=== PATIENT | female | born 1945 | race Caucasian/White ===

== ENCOUNTER → 2016-12-04 | Outpatient (CLI) | payer MEDICARE ==
[2016-12-04 11:52] LABS: ALT 32 U/L (9-52); AST 19 U/L (14-36); Alkaline Phosphatase 100 U/L (38-126); Anion Gap 10 mmol/L; Blood Urea Nitrogen 13 mg/dL (7-17); Calcium 9.4 mg/dL (8.4-10.2); Carbon Dioxide 26 mmol/L (22-30); Chloride 107 mmol/L (98-107); Cholesterol 179 mg/dL (<200); Glucose 135 mg/dL (74-99); HDL Cholesterol 41 mg/dL (40-60); Non-African American GFR(MDRD) >60 (>60 ml/min/1.73 sqM); Potassium 4.3 mmol/L (3.5-5.1); Sodium 143 mmol/L (137-145); Total Bilirubin 0.3 mg/dL (0.2-1.3); Total Protein 6.6 g/dL (6.3-8.2); Triglycerides 155 mg/dL (<150)
[2016-12-04 12:40] LABS: Vitamin B12 522 pg/mL
[2016-12-04 13:23] LABS: Hemoglobin A1C 7.7 % (4.2-6.1)
== END | disposition home or self-care (01) ==
LOC: LABWHC1 10:40
PROVIDERS: ATTEND Internal Medicine Endocrinology, Diabetes & Metabolism
DX: E10.65 Type 1 diabetes mellitus with hyperglycemia (principal)
CPT/HCPCS: 36415; 80053; 80061; 82043; 82607; 83036; 84443

== ENCOUNTER → 2017-03-11 | Outpatient (CLI) | payer MEDICARE ==
[2017-03-11 09:24] LABS: ALT 26 U/L (9-52); AST 18 U/L (14-36); Alkaline Phosphatase 80 U/L (38-126); Anion Gap 8 mmol/L; Blood Urea Nitrogen 11 mg/dL (7-17); Calcium 9.1 mg/dL (8.4-10.2); Carbon Dioxide 31 mmol/L (22-30); Chloride 105 mmol/L (98-107); Cholesterol 177 mg/dL (<200); Glucose 114 mg/dL (74-99); HDL Cholesterol 49 mg/dL (40-60); Non-African American GFR(MDRD) >60 (>60 ml/min/1.73 sqM); Potassium 4.1 mmol/L (3.5-5.1); Sodium 144 mmol/L (137-145); Total Bilirubin 0.8 mg/dL (0.2-1.3); Total Protein 7.2 g/dL (6.3-8.2); Triglycerides 92 mg/dL (<150)
[2017-03-11 13:10] LABS: Hemoglobin A1C 7.3 % (4.2-6.1)
== END ==
LOC: LABWHC1 07:42
PROVIDERS: ATTEND Internal Medicine Endocrinology, Diabetes & Metabolism
DX: E10.42 Type 1 diabetes mellitus with diabetic polyneuropathy (principal); E78.2 Mixed hyperlipidemia
CPT/HCPCS: 36415; 80053; 80061; 83036

== ENCOUNTER 2017-07-23 20:17 | Inpatient (IN) | payer MEDICARE ==
[2017-07-23] MEDS ORDERED: SODIUM CHLORIDE 0.9% 1,000 ML IV STA (21:18)
--- NOTE | 2017-07-23 21:22 | ED ---
General Adult HPI - General Chief complaint: Syncope Stated complaint: Syncope Time Seen by Provider: 07/23/17 21:06 Source: patient, family, EMS, RN notes reviewed Mode of arrival: EMS Limitations: no limitations - History of Present Illness Initial comments: Patient is a pleasant 71-year-old female presenting to the emergency department following syncopal episode. Episode occurred just prior to arrival. After eating dinner patient failed when she had to go the bathroom. Patient did pass out at some point. Patient does not recall the episode well. Patient believes she May of struck her head. No other significant injury. Patient was unresponsive for around a minute or so. No history of similar symptoms previously. Patient was sweaty and did vomit once. Patient did have one or 2 bowel movements since incident. No abdominal pain. No chest pain or dyspnea. No neck or back pain. No confusion. No weakness. - Related Data Home Medications Medication Instructions Recorded Confirmed Aspirin EC [Ecotrin Low Dose] 81 mg PO DAILY 07/18/16 07/23/17 Gabapentin [Neurontin] 300 mg PO TID 07/23/17 07/23/17 Insulin Aspart (For Pump) [NovoLOG 0.01 unit SQ-PUMP CONTINUOUS 07/23/17 (For Pump)] Allergies Allergy/AdvReac Type Severity Reaction Status Date / Time Penicillins Allergy Rash/Hives Verified 07/23/17 20:46 Rkdynrl-Etj-Dla Reductase Allergy Rash/Hives Verified 07/23/17 20:46 Inhibitor Review of Systems ROS Statement: Those systems with pertinent positive or pertinent negative responses have been documented in the HPI. ROS Other: All systems not noted in ROS Statement are negative. Constitutional: Denies: fever Eyes: Denies: eye pain ENT: Denies: ear pain Respiratory: Denies: cough, dyspnea Cardiovascular: Denies: chest pain Endocrine: Reports: fatigue Gastrointestinal: Reports: vomiting. Denies: abdominal pain, constipation Genitourinary: Denies: dysuria Musculoskeletal: Denies: back pain Skin: Denies: rash Neurological: Denies: weakness, confusion Past Medical History Past Medical History: Diabetes Mellitus, Hyperlipidemia History of Any Multi-Drug Resistant Organisms: None Reported Past Surgical History: Appendectomy, Cholecystectomy, Hysterectomy, Tonsillectomy Past Anesthesia/Blood Transfusion Reactions: No Reported Reaction Past Psychological History: No Psychological Hx Reported Smoking Status: Current every day smoker Past Alcohol Use History: None Reported, Occasional Past Drug Use History: None Reported - Past Family History Mother Family Medical History: Unable to Obtain Father Family Medical History: COPD General Exam Limitations: no limitations General appearance: alert, in no apparent distress Head exam: Present: atraumatic Eye exam: Present: normal appearance, PERRL, EOMI. Absent: nystagmus ENT exam: Present: normal oropharynx Neck exam: Present: normal inspection Respiratory exam: Present: normal lung sounds bilaterally. Absent: chest wall tenderness Cardiovascular Exam: Present: regular rate, normal rhythm Expanded Peripheral pulses: 2+: Radial (R), Radial (L), Dorsalis Pedis (R), Dorsalis Pedis (L) GI/Abdominal exam: Present: soft. Absent: tenderness, pulsatile mass Extremities exam: Present: normal inspection. Absent: pedal edema, calf tenderness Back exam: Present: normal inspection Neurological exam: Present: alert, oriented X3, CN II-XII intact. Absent: motor sensory deficit Expanded Patient oriented to: Present: person, place, time Speech: Present: fluid speech Cranial nerves: EOM's Intact: Normal, Facial Sensation: Normal Sensory exam: Upper Extremity Light Touch: Normal, Lower Extremity Light Touch: Normal Motor strength exam: RUE: 5, LUE: 5, RLE: 5, LLE: 5 Eye Response: (4) open spontaneously Motor Response: (6) obeys commands Verbal Response: (5) oriented Psychiatric exam: Present: normal affect, normal mood Skin exam: Present: normal color Course Vital Signs 07/23/17 07/23/17 07/23/17 20:28 20:58 21:33 Temperature 97.6 F Pulse Rate 77 76 73 Respiratory 18 18 18 Rate Blood Pressure 100/55 102/55 112/56 O2 Sat by Pulse 87 L 99 100 Oximetry 07/23/17 07/23/17 07/23/17 22:13 22:30 23:23 Temperature Pulse Rate 72 75 Respiratory 18 18 Rate Blood Pressure 116/73 104/64 O2 Sat by Pulse 100 97 98 Oximetry EKG Findings - EKG Comments: EKG Findings:: Normal sinus rhythm 74. NH 176. QRS 88. QT 432. QTC 479. Normal axis. Normal QRS. Normal ST-T. Medical Decision Making - Medical Decision Making Patient reexamined and resting comfortably in bed. Patient is more alert and feels much better. Patient and family updated on results and plan. Case was discussed with practitioner Lucinda reyna, who will admit for Dr. Viera, covering for Dr. Kincaid. - Lab Data Result diagrams: 07/23/17 21:30 07/23/17 21:30 Lab Results 07/23/17 07/23/17 07/23/17 Range/Units 21:30 21:30 21:30 WBC 9.9 (3.8-10.6) k/uL RBC 4.52 (3.80-5.40) m/uL Hgb 13.5 (11.4-16.0) gm/dL Hct 41.5 (34.0-46.0) % MCV 91.7 (80.0-100.0) fL MCH 30.0 (25.0-35.0) pg MCHC 32.7 (31.0-37.0) g/dL RDW 14.2 (11.5-15.5) % Plt Count 192 (150-450) k/uL Neutrophils % 72 % Lymphocytes % 18 % Monocytes % 5 % Eosinophils % 3 % Basophils % 1 % Neutrophils # 7.2 (1.3-7.7) k/uL Lymphocytes # 1.8 (1.0-4.8) k/uL Monocytes # 0.5 (0-1.0) k/uL Eosinophils # 0.3 (0-0.7) k/uL Basophils # 0.1 (0-0.2) k/uL PT (9.0-12.0) sec INR (<1.2) APTT (22.0-30.0) sec D-Dimer (<0.60) mg/L FEU Sodium 141 (137-145) mmol/L Potassium 4.2 (3.5-5.1) mmol/L Chloride 107 (98-107) mmol/L Carbon Dioxide 23 (22-30) mmol/L Anion Gap 11 mmol/L BUN 18 H (7-17) mg/dL Creatinine 0.90 (0.52-1.04) mg/dL Est GFR (MDRD) Af Amer >60 (>60 ml/min/1.73 sqM) Est GFR (MDRD) Non-Af >60 (>60 ml/min/1.73 sqM) Glucose 57 L (74-99) mg/dL POC Glucose (mg/dL) (75-99) mg/dL POC Glu Network Associate ID Calcium 9.2 (8.4-10.2) mg/dL Total Bilirubin 0.5 (0.2-1.3) mg/dL AST 30 (14-36) U/L ALT 33 (9-52) U/L Alkaline Phosphatase 85 (38-126) U/L Total Creatine Kinase 174 H (30-135) U/L CK-MB (CK-2) 3.8 H* (0.0-2.4) ng/mL CK-MB (CK-2) Rel Index 2.2 Troponin I <0.012 (0.000-0.034) ng/mL Total Protein 7.4 (6.3-8.2) g/dL Albumin 4.3 (3.5-5.0) g/dL Urine Color Urine Appearance (Clear) Urine pH (5.0-8.0) Ur Specific [place] (1.001-1.035) Urine Protein (Negative) Urine Glucose (UA) (Negative) Urine Ketones (Negative) Urine Blood (Negative) Urine Nitrite (Negative) Urine Bilirubin (Negative) Urine Urobilinogen (<2.0) mg/dL Ur Leukocyte Esterase (Negative) Urine RBC (0-5) /hpf Urine WBC (0-5) /hpf Ur Squamous Epith Cells (0-4) /hpf Urine Bacteria (None) /hpf Granular Casts (0) /lpf Urine Mucus (None) /hpf 07/23/17 07/23/17 07/23/17 Range/Units 21:30 22:06 22:37 WBC (3.8-10.6) k/uL RBC (3.80-5.40) m/uL Hgb (11.4-16.0) gm/dL Hct (34.0-46.0) % MCV (80.0-100.0) fL MCH (25.0-35.0) pg MCHC (31.0-37.0) g/dL RDW (11.5-15.5) % Plt Count (150-450) k/uL Neutrophils % % Lymphocytes % % Monocytes % % Eosinophils % % Basophils % % Neutrophils # (1.3-7.7) k/uL Lymphocytes # (1.0-4.8) k/uL Monocytes # (0-1.0) k/uL Eosinophils # (0-0.7) k/uL Basophils # (0-0.2) k/uL PT 10.1 (9.0-12.0) sec INR 1.0 (<1.2) APTT 22.1 (22.0-30.0) sec D-Dimer 0.68 H (<0.60) mg/L FEU Sodium (137-145) mmol/L Potassium (3.5-5.1) mmol/L Chloride (98-107) mmol/L Carbon Dioxide (22-30) mmol/L Anion Gap mmol/L BUN (7-17) mg/dL Creatinine (0.52-1.04) mg/dL Est GFR (MDRD) Af Amer (>60 ml/min/1.73 sqM) Est GFR (MDRD) Non-Af (>60 ml/min/1.73 sqM) Glucose (74-99) mg/dL POC Glucose (mg/dL) 66 L 93 (75-99) mg/dL POC Glu Network Associate ID Colin, Luna Shaw, Luna Calcium (8.4-10.2) mg/dL Total Bilirubin (0.2-1.3) mg/dL AST (14-36) U/L ALT (9-52) U/L Alkaline Phosphatase (38-126) U/L Total Creatine Kinase (30-135) U/L CK-MB (CK-2) (0.0-2.4) ng/mL CK-MB (CK-2) Rel Index Troponin I (0.000-0.034) ng/mL Total Protein (6.3-8.2) g/dL Albumin (3.5-5.0) g/dL Urine Color Urine Appearance (Clear) Urine pH (5.0-8.0) Ur Specific [place] (1.001-1.035) Urine Protein (Negative) Urine Glucose (UA) (Negative) Urine Ketones (Negative) Urine Blood (Negative) Urine Nitrite (Negative) Urine Bilirubin (Negative) Urine Urobilinogen (<2.0) mg/dL Ur Leukocyte Esterase (Negative) Urine RBC (0-5) /hpf Urine WBC (0-5) /hpf Ur Squamous Epith Cells (0-4) /hpf Urine Bacteria (None) /hpf Granular Casts (0) /lpf Urine Mucus (None) /hpf 07/23/17 07/23/17 Range/Units 23:10 23:21 WBC (3.8-10.6) k/uL RBC (3.80-5.40) m/uL Hgb (11.4-16.0) gm/dL Hct (34.0-46.0) % MCV (80.0-100.0) fL MCH (25.0-35.0) pg MCHC (31.0-37.0) g/dL RDW (11.5-15.5) % Plt Count (150-450) k/uL Neutrophils % % Lymphocytes % % Monocytes % % Eosinophils % % Basophils % % Neutrophils # (1.3-7.7) k/uL Lymphocytes # (1.0-4.8) k/uL Monocytes # (0-1.0) k/uL Eosinophils # (0-0.7) k/uL Basophils # (0-0.2) k/uL PT (9.0-12.0) sec INR (<1.2) APTT (22.0-30.0) sec D-Dimer (<0.60) mg/L FEU Sodium (137-145) mmol/L Potassium (3.5-5.1) mmol/L Chloride (98-107) mmol/L Carbon Dioxide (22-30) mmol/L Anion Gap mmol/L BUN (7-17) mg/dL Creatinine (0.52-1.04) mg/dL Est GFR (MDRD) Af Amer (>60 ml/min/1.73 sqM) Est GFR (MDRD) Non-Af (>60 ml/min/1.73 sqM) Glucose (74-99) mg/dL POC Glucose (mg/dL) 226 H (75-99) mg/dL POC Glu Network Associate ID Luna Shaw Calcium (8.4-10.2) mg/dL Total Bilirubin (0.2-1.3) mg/dL AST (14-36) U/L ALT (9-52) U/L Alkaline Phosphatase (38-126) U/L Total Creatine Kinase (30-135) U/L CK-MB (CK-2) (0.0-2.4) ng/mL CK-MB (CK-2) Rel Index Troponin I (0.000-0.034) ng/mL Total Protein (6.3-8.2) g/dL Albumin (3.5-5.0) g/dL Urine Color Yellow Urine Appearance Clear (Clear) Urine pH 6.0 (5.0-8.0) Ur Specific [place] 1.022 (1.001-1.035) Urine Protein Trace H (Negative) Urine Glucose (UA) 1+ H (Negative) Urine Ketones Negative (Negative) Urine Blood Negative (Negative) Urine Nitrite Negative (Negative) Urine Bilirubin Negative (Negative) Urine Urobilinogen <2.0 (<2.0) mg/dL Ur Leukocyte Esterase Moderate H (Negative) Urine RBC 6 H (0-5) /hpf Urine WBC 8 H (0-5) /hpf Ur Squamous Epith Cells 1 (0-4) /hpf Urine Bacteria Occasional H (None) /hpf Granular Casts 3 (0) /lpf Urine Mucus Rare H (None) /hpf - Radiology Data Radiology results: report reviewed (Computed tomography scan of the chest shows no evidence of pulmonary embolism. Computed tomography scan of the brain shows no acute process.), image reviewed (Chest x-ray shows no acute process) Disposition Clinical Impression: Syncope Disposition: ADMITTED IP TO THIS [facility] Referrals: Jose Kincaid III, MD [Primary Care Provider] - 1-2 days Decision Time: 00:21
[2017-07-23 21:50] LABS: Basophils # (A) 0.1 k/uL (0-0.2); Basophils % (A) 1 %; CH 31.1; Eosinophils # (A) 0.3 k/uL (0-0.7); Eosinophils % (A) 3 %; HCT 41.5 % (34.0-46.0); HDW 2.36; HGB 13.5 gm/dL (11.4-16.0); Luc # (Auto) 0.15; Luc % (Auto) 2; Lymphocytes # (A) 1.8 k/uL (1.0-4.8); Lymphocytes % (A) 18 %; MCHC 32.7 g/dL (31.0-37.0); MCV 91.7 fL (80.0-100.0); Mean Platelet Volume 7.5; Monocytes # (A) 0.5 k/uL (0-1.0); Monocytes % (A) 5 %; Neutrophils # (A) 7.2 k/uL (1.3-7.7); Neutrophils % (A) 72 %; RBC 4.52 m/uL (3.80-5.40); RDW 14.2 % (11.5-15.5); WBC 9.9 k/uL (3.8-10.6); WBC (Perox) 10.21
[2017-07-23 22:01] LABS: ALT 33 U/L (9-52); AST 30 U/L (14-36); Alkaline Phosphatase 85 U/L (38-126); Anion Gap 11 mmol/L; Blood Urea Nitrogen 18 mg/dL (7-17); Calcium 9.2 mg/dL (8.4-10.2); Carbon Dioxide 23 mmol/L (22-30); Chloride 107 mmol/L (98-107); Glucose 57 mg/dL (74-99); Non-African American GFR(MDRD) >60 (>60 ml/min/1.73 sqM); Potassium 4.2 mmol/L (3.5-5.1); Sodium 141 mmol/L (137-145); Total Bilirubin 0.5 mg/dL (0.2-1.3); Total Protein 7.4 g/dL (6.3-8.2)
--- NOTE | 2017-07-23 22:06 | XR ---
EXAMINATION TYPE: XR chest 2V DATE OF EXAM: 07/23/2017 COMPARISON: NONE HISTORY: Syncope with nausea TECHNIQUE: Frontal and lateral views of the chest are obtained. FINDINGS: There is prominent elevation of the left hemidiaphragm, etiology unclear. The lungs appear to be clear. The pleural spaces appear to be negative. Cardiomediastinal silhouette and bones and so ft tissues are unremarkable. IMPRESSION: 1. NO ACUTE PROCESS. 2. ELEVATED LEFT HEMIDIAPHRAGM NOTED.
[2017-07-23 22:07] LABS: Glucose,Whole Blood 66 mg/dL (75-99)
--- NOTE | 2017-07-23 22:08 | CT ---
EXAMINATION TYPE: CT brain wo con DATE OF EXAM: 07/23/2017 COMPARISON: NONE HISTORY: Syncopal episode. CT DLP: 953.70 mGycm. Automated exposure control for dose reduction was used. FINDINGS: There is no hemorrhage or mass or mass effect. No definite new attenuation defect. Extra-axial compar tment is unremarkable. The calvarium is intact. The mastoid sinus air cells and middle ear cavities a nd paranasal sinuses are clear. IMPRESSION: NO ACUTE PROCESS.
[2017-07-23] MEDS ORDERED: ACETAMINOPHEN TAB 500 MG TAB PO STA (22:12)
[2017-07-23 22:13] LABS: Creatine Kinase 174 U/L (30-135)
[2017-07-23 22:14] LABS: Prothrombin Time 10.1 sec (9.0-12.0)
[2017-07-23 22:25] LABS: Partial Thromboplastin Time 22.1 sec (22.0-30.0)
[2017-07-23 22:26] LABS: Troponin I <0.012 ng/mL (0.000-0.034)
[2017-07-23 22:33] LABS: Creatine Kinase MB 3.8 ng/mL (0.0-2.4)
[2017-07-23 22:40] LABS: Glucose,Whole Blood 93 mg/dL (75-99)
[2017-07-23] MEDS ORDERED: RX INFO: IV CONTRAST WAS GIVEN 1 EACH MISC MISCELLANE PRN (22:41)
[2017-07-23 23:23] LABS: Glucose,Whole Blood 226 mg/dL (75-99)
[2017-07-23 23:27] LABS: Appearance,Urine Clear (Clear); Bacteria,Urine Occasional /hpf; Bilirubin,Urine Negative (Negative); Glucose,Urine (UA) 1+ (Negative); Granular Casts,Urine 3 /lpf (0); Ketones,Urine Negative (Negative); Leukocyte Esterase,Urine Moderate (Negative); Mucus,Urine Rare /hpf; Nitrite,Urine Negative (Negative); Particle Count 5535; Protein,Urine Trace (Negative); RBC,Urine 6 /hpf (0-5); Specific Gravity,Urine 1.022 (1.001-1.035); Squamous Epithelial Cell,Urine 1 /hpf (0-4); UA Billing (MACRO vs. MICRO) MICRO; Urobilinogen,Urine <2.0 mg/dL (<2.0); WBC,Urine 8 /hpf (0-5)
--- NOTE | 2017-07-24 00:12 | CT ---
EXAM: CT Angiography Chest With Intravenous Contrast CLINICAL HISTORY: Reason: pe protocol TECHNIQUE: Axial computed tomographic angiography images of the chest with intravenous contrast using pulmonary embolism protocol. CTDI is 58.60 mGy and DLP is 213.90 mGy-cm. This CT exam was performed using one or more of the following dose reduction techniques: automated exposure control, adjustment of the mA and/or kV according to patient size, and/or use of iterative reconstruction technique. MIP reconstructed images were created and reviewed. COMPARISON: No relevant prior studies available. FINDINGS: Pulmonary arteries: Unremarkable. No pulmonary embolism. Aorta: No acute findings. No thoracic aortic aneurysm. Lungs: Subsegmental atelectasis and/or scarring at the left lower lobe. No mass. Pleural space: Unremarkable. No significant effusion. No pneumothorax. Heart: Unremarkable. No cardiomegaly. No significant pericardial effusion. No evidence of RV dysfunction. Bones/joints: No acute fracture. No dislocation. Soft tissues: Unremarkable. Lymph nodes: Unremarkable. No enlarged lymph nodes. IMPRESSION: No PE. Subsegmental atelectasis and/or scarring at the left lower lobe.
[2017-07-24] MEDS ORDERED: NALOXONE 0.4 MG/ML 1 ML VIAL IV PRN (00:21)
[2017-07-24 00:26] LABS: Glucose,Whole Blood 215 mg/dL (75-99)
[2017-07-24] MEDS ORDERED: SODIUM CHLORIDE 0.9% 1,000 ML IV SCH (00:30)
[2017-07-24 01:49] LABS: Glucose,Whole Blood 204 mg/dL (75-99)
[2017-07-24 04:49] VITALS: BMI 24.8
[2017-07-24 06:04] LABS: Glucose,Whole Blood 227 mg/dL (75-99)
[2017-07-24 07:36] LABS: Creatine Kinase 186 U/L (30-135)
[2017-07-24 07:49] LABS: Troponin I <0.012 ng/mL (0.000-0.034)
[2017-07-24 07:50] LABS: Creatine Kinase MB 3.2 ng/mL (0.0-2.4)
[2017-07-24 08:10] VITALS: RESP 16
[2017-07-24 11:33] LABS: Glucose,Whole Blood 177 mg/dL (75-99)
[2017-07-24] MEDS ORDERED: INSULIN LISPRO (humaLOG) 300 UNIT/3 ML VIAL SQ PRN (11:36)
[2017-07-24] MEDS ORDERED: INSULIN PUMP ACTIVE INSULIN 1 EACH MISC MISCELLANE PRN (11:36)
[2017-07-24] MEDS ORDERED: INSPUCOR MISCELLANE PRN (11:36)
[2017-07-24] MEDS ORDERED: INSULIN PUMP BASAL RATES 1 EACH MISC MISCELLANE PRN (11:36)
[2017-07-24] MEDS ORDERED: INSULIN PUMP TARGET GLUCOSE 1 EACH MISC MISCELLANE PRN (11:36)
--- NOTE | 2017-07-24 12:18 | P.CRDCN ---
History of Present Illness Consult date: 07/24/17 Consult reason: sycope History of present illness: 71-year-old lady comes to Hospital having had an episode of syncope at home. She wasn't feeling very well most of yesterday felt somewhat nauseous went into the bathroom where she passed out. She subsequently had a vomiting. EMS came brought her and since that time she has been feeling well. EKG doesn't reveal ischemic changes 2 sets of cardiac enzymes are negative his computed tomography scan of the chest is negative for pulmonary embolism. She is remains in sinus rhythm. She had an echocardiogram where going to review the results of that looks normal she can be discharged home and pursue her workup as outpatient. She had a carotid duplex will review it if not we can be done as outpatient. She will need an outpatient stress test. Review of Systems Constitutional: Denies chills. Denies fever. Eyes: Denies blurred vision. Denies pain. Ears, nose, mouth and throat: Denies headache. Denies sore throat. Cardiovascular: Denies chest pain. Denies shortness of breath. Patient had syncope Respiratory: Denies cough. Gastrointestinal: Had nausea and abdominal discomfort and diarrhea Musculoskeletal: Denies myalgias. Integumentary: Denies pruritus. Denies rash. Neurological: Denies numbness. Denies weakness. Psychiatric: Denies anxiety. Denies depression. Endocrine: Denies fatigue. Denies weight change. Genitourinary: Denies burning, hematuria, frequency of urination. Hematological: No anemia or excess bleeding. Past Medical History Past Medical History: Diabetes Mellitus, Hyperlipidemia History of Any Multi-Drug Resistant Organisms: None Reported Past Surgical History: Appendectomy, Cholecystectomy, Hysterectomy, Tonsillectomy Past Anesthesia/Blood Transfusion Reactions: No Reported Reaction Past Psychological History: No Psychological Hx Reported Additional Psychological History / Comment(s): "don't sleep well" Smoking Status: Current every day smoker Past Alcohol Use History: None Reported, Occasional Past Drug Use History: None Reported - Past Family History Mother Family Medical History: Unable to Obtain Father Family Medical History: COPD Medications and Allergies Home Medications Medication Instructions Recorded Confirmed Type Aspirin EC [Ecotrin Low Dose] 81 mg PO DAILY 07/18/16 07/23/17 History Gabapentin [Neurontin] 300 mg PO TID 07/23/17 07/23/17 History Insulin Aspart (For Pump) [NovoLOG 0.01 unit SQ-PUMP CONTINUOUS 07/23/17 History (For Pump)] Allergies Allergy/AdvReac Type Severity Reaction Status Date / Time Penicillins Allergy Rash/Hives Verified 07/23/17 20:46 Ggedyyc-Dxa-Gur Reductase Allergy Rash/Hives Verified 07/23/17 20:46 Inhibitor Physical Exam Vitals: Vital Signs Temp Pulse Pulse Resp BP BP BP 07/24/17 08:00 96.9 F L 83 16 126/68 07/24/17 03:45 98 F 77 18 123/59 07/24/17 02:30 78 18 108/55 07/24/17 01:52 97.0 F L 78 72 18 120/56 131/59 07/24/17 00:53 87 18 110/56 115/59 07/24/17 00:34 88 18 120/57 07/23/17 23:23 75 18 104/64 07/23/17 22:30 07/23/17 22:13 72 18 116/73 07/23/17 21:33 73 18 112/56 07/23/17 20:58 76 18 102/55 07/23/17 20:28 97.6 F 77 18 100/55 BP Pulse Ox 07/24/17 08:00 98 07/24/17 03:45 96 07/24/17 02:30 99 07/24/17 01:52 99 07/24/17 00:53 115/65 07/24/17 00:34 98 07/23/17 23:23 98 07/23/17 22:30 97 07/23/17 22:13 100 07/23/17 21:33 100 07/23/17 20:58 99 07/23/17 20:28 87 L Intake and Output 07/23/17 07/24/17 07/24/17 22:59 06:59 14:59 Output Total 0 Balance 0 Output: Urine 0 Other: Weight 63.049 kg 63.7 kg General: The patient is awake and alert, in no distress, and does not appear acutely ill. Skin: Skin is warm and dry and no rashes or lesions are noted. Eye: Pupils are equal, round and reactive to light, extra-ocular movements are intact; there is normal conjunctiva bilaterally. Ears, nose, mouth and throat: There are moist mucous membranes and no oral lesions. Neck: The neck is supple, there is no tenderness or JVD. Cardiovascular: There is a regular rate and rhythm. No murmur, rub or gallop is appreciated. Respiratory: Lungs are clear to auscultation, respirations are non-labored, breath sounds are equal. Gastrointestinal: Soft, non-distended, non-tender abdomen without masses or organomegaly noted. There is no rebound or guarding present. Bowel sounds are unremarkable. Back: There is no tenderness to palpation in the midline. There is no obvious deformity. Musculoskeletal: Normal ROM, no tenderness, There is no pedal edema. There is no calf tenderness or swelling. Extremities: No edema. Vascular: Femoral pulse is normal. Posterior tibial pulses are normal .Dorsalis pedis is palpable. Neurological: CN II-XII intact. There are no obvious motor or sensory deficits. Speech is normal. Psychiatric: Cooperative, appropriate mood & affect, normal judgment. Results 07/23/17 21:30 07/23/17 21:30 Cardiac Enzymes 07/23/17 07/23/17 07/24/17 Range/Units 21:30 21:30 06:44 AST 30 (14-36) U/L CK-MB (CK-2) 3.8 H* 3.2 H* (0.0-2.4) ng/mL Troponin I <0.012 <0.012 (0.000-0.034) ng/mL Coagulation 07/23/17 Range/Units 21:30 PT 10.1 (9.0-12.0) sec APTT 22.1 (22.0-30.0) sec CBC 07/23/17 Range/Units 21:30 WBC 9.9 (3.8-10.6) k/uL RBC 4.52 (3.80-5.40) m/uL Hgb 13.5 (11.4-16.0) gm/dL Hct 41.5 (34.0-46.0) % Plt Count 192 (150-450) k/uL Comprehensive Metabolic Panel 07/23/17 Range/Units 21:30 Sodium 141 (137-145) mmol/L Potassium 4.2 (3.5-5.1) mmol/L Chloride 107 (98-107) mmol/L Carbon Dioxide 23 (22-30) mmol/L BUN 18 H (7-17) mg/dL Creatinine 0.90 (0.52-1.04) mg/dL Glucose 57 L (74-99) mg/dL Calcium 9.2 (8.4-10.2) mg/dL AST 30 (14-36) U/L ALT 33 (9-52) U/L Alkaline Phosphatase 85 (38-126) U/L Total Protein 7.4 (6.3-8.2) g/dL Albumin 4.3 (3.5-5.0) g/dL Current Medications Generic Name Dose Route Start Last Admin Trade Name Freq PRN Reason Stop Dose Admin Sodium Chloride 1,000 mls @ 20 mls/hr 07/24/17 00:30 07/24/17 01:51 Saline 0.9% IV 20 mls/hr .Q24H SHAWN Administration Insulin Human Lispro 0 unit 07/24/17 11:36 Humalog SQ DAILY PRN Insulin Pump Replacement Miscellaneous Information 1 each 07/23/17 22:41 07/23/17 22:49 Rx Info: Iv Contrast Was Given MISCELLANE 07/25/17 22:41 1 each DAILY PRN Administration Per Protocol Miscellaneous Information 1 each 07/24/17 11:36 Insulin Pump Active Insulin MISCELLANE ACHS PRN Blood Sugar - High Protocol Miscellaneous Information 1 each 07/24/17 11:36 Insulin Pump Basal Rates MISCELLANE Q6HR PRN Blood Sugar - High Protocol Miscellaneous Information 0 unit 07/24/17 11:36 Insulin Pump Correction Bolus MISCELLANE ACHS PRN Blood Sugar - High Protocol Miscellaneous Information 0 unit 07/24/17 12:30 Insulin Pump Meal Bolus MISCELLANE ACHS SHAWN Protocol Miscellaneous Information 1 each 07/24/17 11:36 Insulin Pump Target Glucose MISCELLANE ACHS PRN Blood Sugar - High Protocol Naloxone HCl 0.2 mg 07/24/17 00:21 Narcan IV Q2M PRN Opioid Reversal Intake and Output 07/23/17 07/24/17 07/24/17 22:59 06:59 14:59 Output Total 0 Balance 0 Output: Urine 0 Other: Weight 63.049 kg 63.7 kg 07/23/17 21:30 07/23/17 21:30 EKG Interpretations (text) Normal sinus rhythm and within normal limits Assessment and Plan Plan: Syncope probably vasovagal Workup is negative so far. I will review the echocardiogram. Patient will follow-up with me for outpatient stress test.
[2017-07-24] MEDS ORDERED: INSULIN PUMP MEAL BOLUS 1 UNIT MISC MISCELLANE SCH (12:30)
[2017-07-24 12:49] LABS: Creatine Kinase 174 U/L (30-135)
[2017-07-24 13:03] LABS: Troponin I <0.012 ng/mL (0.000-0.034)
[2017-07-24 13:04] LABS: Creatine Kinase MB 2.7 ng/mL (0.0-2.4)
[2017-07-24 14:03] LABS: Hemoglobin A1C 7.4 % (4.2-6.1)
[2017-07-24 15:28] VITALS: BP 130/61; PULSE 69; TEMP 97.8
[2017-07-24 16:31] LABS: Glucose,Whole Blood 90 mg/dL (75-99)
--- NOTE | 2017-07-24 18:12 | ECHOF ---
Referral Reason:syncope MEASUREMENTS -------- HEIGHT: 160.0 cm WEIGHT: 63.5 kg BP: IVSd: 0.7 cm (0.6 - 1.1) LVIDd: 3.5 cm (3.9 - 5.3) LVPWd: 1.1 cm (0.6 - 1.1) IVSs: 1.6 cm LVIDs: 1.7 cm LVPWs: 2.2 cm Ao Diam: 2.6 cm (2.0 - 3.7) AV Cusp: 1.7 cm (1.5 - 2.6) LA Diam: 2.5 cm (2.7 - 3.8) MV EXCURSION: 13.059 mm (> 18.000) MV EF SLOPE: 75 mm/s (70 - 150) EPSS: 0.8 cm MV E Pete: 0.88 m/s MV DecT: 257 ms MV A Pete: 0.92 m/s MV E/A Ratio: 0.96 RAP: 5.00 mmHg RVSP: 26.84 mmHg FINDINGS -------- Sinus rhythm. This was a technically good study. Left ventricular wall thickness is normal. Overall left ventricular systolic function is normal with, an EF between 55 - 60 %. The right ventricle is normal in size and function. The left atrium is normal in size. The right atrium is normal in size. The aortic valve is trileaflet, and appears structurally normal. No aortic stenosis or regurgitation. There is trace mitral regurgitation. Mild tricuspid regurgitation present. The right ventricular systolic pressure, as measured by Doppler, is 26.84mmHg. Pulmonic valve appears structurally normal. The aortic root size is normal. Normal inferior vena cava with normal inspiratory collapse consistent with estimated right atrial pressure of 5 mmHg. Echo free space may represent effusion or a pericardial fat pad. CONCLUSIONS -------- 1. Sinus rhythm. 2. Mild tricuspid regurgitation present. 3. The right ventricular systolic pressure, as measured by Doppler, is 26.84mmHg. 4. Pulmonic valve appears structurally normal. 5. The aortic root size is normal. 6. Normal inferior vena cava with normal inspiratory collapse consistent with estimated right atrial pressure of 5 mmHg. 7. Echo free space may represent effusion or a pericardial fat pad. 8. This was a technically good study. 9. Left ventricular wall thickness is normal. 10. Overall left ventricular systolic function is normal with, an EF between 55 - 60 %. 11. The right ventricle is normal in size and function. 12. The left atrium is normal in size. 13. The right atrium is normal in size. 14. The aortic valve is trileaflet, and appears structurally normal. No aortic stenosis or regurgitation. 15. There is trace mitral regurgitation. SWITCH REPAIRER: Elizabeth Cerrato RDCS
--- NOTE | 2017-07-24 18:37 | P.HPIM ---
History of Present Illness H&P Date: 07/24/17 (DC summary as well) 71-year-old female with history of type 1 diabetes currently maintained on insulin pump comes in to the hospital with this episode of syncope. Patient sees Dr. Kincaid is her primary care physician Patient states that she initially 87 food thereafter noted severe abdominal pain crampy in nature patient that she had a bowel movement immediately noted to have some generalized weakness thereafter got diaphoretic and that was lasting she remembers patient noted that she woke up on the floor of her bathroom and vomited thereafter Patient was confused for close to 30-40 minutes thereafter Patient's daughter and son who were with her at that time did not note any seizure-like activity Patient denies having any previous episode of syncope EKG in the emergency room does not show conduction delay or ST-T wave changes Patient is a very active person has never had these symptoms in the past Review of systems 14 point review of systems was done nonpertinent was mentioned above including active chest pain headaches blurry vision focal weakness nausea vomiting diarrhea abdominal pain urinary urgency or frequency in the recent times Physical examPhysical exam Gen. appearance oriented 3 in no distress Neck is supple no JVD Lungs good air entry clear to auscultation no rhonchi or wheezing Heart S1-S2 heard regular rate and rhythm no murmurs appreciated Abdomen is soft nontender no organomegaly bowel sounds are intact Neurologically cranial nerves II-12 grossly intact no focal motor or sensory deficits noted Skin no abnormalities appreciated Assessment and plan #1 vasovagal syncope #2 diabetes mellitus type 1 Plan Patient was monitored without any abnormalities on the motion picture set worker Patient is recommended to follow up with cardiology on an outpatient basis. If another episode does occur at that time would benefit from a 30 day event monitor. No murmurs could be auscultated could have an outpatient echocardiogram at some point Discharged home in a stable condition to follow-up with Dr. Kincaid. Past Medical History Past Medical History: Diabetes Mellitus, Hyperlipidemia History of Any Multi-Drug Resistant Organisms: None Reported Past Surgical History: Appendectomy, Cholecystectomy, Hysterectomy, Tonsillectomy Past Anesthesia/Blood Transfusion Reactions: No Reported Reaction Past Psychological History: No Psychological Hx Reported Additional Psychological History / Comment(s): "don't sleep well" Smoking Status: Current every day smoker Past Alcohol Use History: None Reported, Occasional Past Drug Use History: None Reported - Past Family History Mother Family Medical History: Unable to Obtain Father Family Medical History: COPD Medications and Allergies Home Medications Medication Instructions Recorded Confirmed Type Aspirin EC [Ecotrin Low Dose] 81 mg PO DAILY 07/18/16 07/23/17 History Insulin Aspart (For Pump) [NovoLOG 0.01 unit SQ-PUMP CONTINUOUS 07/23/17 History (For Pump)] Gabapentin [Neurontin] 300 mg PO BID #0 07/24/17 07/23/17 Rx Allergies Allergy/AdvReac Type Severity Reaction Status Date / Time Penicillins Allergy Rash/Hives Verified 07/23/17 20:46 Gynbnle-Smm-Bvm Reductase Allergy Rash/Hives Verified 07/23/17 20:46 Inhibitor Physical Exam Vitals: Vital Signs Temp Pulse Pulse Resp BP BP BP 07/24/17 12:00 97.8 F 69 16 130/61 07/24/17 08:00 96.9 F L 83 16 126/68 07/24/17 03:45 98 F 77 18 123/59 07/24/17 02:30 78 18 108/55 07/24/17 01:52 97.0 F L 78 72 18 120/56 131/59 07/24/17 00:53 87 18 110/56 115/59 07/24/17 00:34 88 18 120/57 07/23/17 23:23 75 18 104/64 07/23/17 22:30 07/23/17 22:13 72 18 116/73 07/23/17 21:33 73 18 112/56 07/23/17 20:58 76 18 102/55 07/23/17 20:28 97.6 F 77 18 100/55 BP Pulse Ox 07/24/17 12:00 96 07/24/17 08:00 98 07/24/17 03:45 96 07/24/17 02:30 99 07/24/17 01:52 99 07/24/17 00:53 115/65 07/24/17 00:34 98 07/23/17 23:23 98 07/23/17 22:30 97 07/23/17 22:13 100 07/23/17 21:33 100 07/23/17 20:58 99 07/23/17 20:28 87 L Intake and Output 07/24/17 07/24/17 07/24/17 06:59 14:59 22:59 Intake Total 237 Output Total 0 350 Balance 0 -113 Intake: Oral 237 Output: Urine 0 350 Other: Weight 63.7 kg Results CBC & Chem 7: 07/23/17 21:30 07/23/17 21:30 Labs: Abnormal Lab Results - Last 24 Hours (Table) 07/23/17 07/23/17 07/23/17 Range/Units 21:30 21:30 21:30 D-Dimer 0.68 H (<0.60) mg/L FEU BUN 18 H (7-17) mg/dL Glucose 57 L (74-99) mg/dL POC Glucose (mg/dL) (75-99) mg/dL Hemoglobin A1c (4.2-6.1) % Total Creatine Kinase 174 H (30-135) U/L CK-MB (CK-2) 3.8 H* (0.0-2.4) ng/mL Urine Protein (Negative) Urine Glucose (UA) (Negative) Ur Leukocyte Esterase (Negative) Urine RBC (0-5) /hpf Urine WBC (0-5) /hpf Urine Bacteria (None) /hpf Urine Mucus (None) /hpf 07/23/17 07/23/17 07/23/17 Range/Units 22:06 23:10 23:21 D-Dimer (<0.60) mg/L FEU BUN (7-17) mg/dL Glucose (74-99) mg/dL POC Glucose (mg/dL) 66 L 226 H (75-99) mg/dL Hemoglobin A1c (4.2-6.1) % Total Creatine Kinase (30-135) U/L CK-MB (CK-2) (0.0-2.4) ng/mL Urine Protein Trace H (Negative) Urine Glucose (UA) 1+ H (Negative) Ur Leukocyte Esterase Moderate H (Negative) Urine RBC 6 H (0-5) /hpf Urine WBC 8 H (0-5) /hpf Urine Bacteria Occasional H (None) /hpf Urine Mucus Rare H (None) /hpf 07/24/17 07/24/17 07/24/17 Range/Units 00:24 01:47 06:02 D-Dimer (<0.60) mg/L FEU BUN (7-17) mg/dL Glucose (74-99) mg/dL POC Glucose (mg/dL) 215 H 204 H 227 H (75-99) mg/dL Hemoglobin A1c (4.2-6.1) % Total Creatine Kinase (30-135) U/L CK-MB (CK-2) (0.0-2.4) ng/mL Urine Protein (Negative) Urine Glucose (UA) (Negative) Ur Leukocyte Esterase (Negative) Urine RBC (0-5) /hpf Urine WBC (0-5) /hpf Urine Bacteria (None) /hpf Urine Mucus (None) /hpf 07/24/17 07/24/17 07/24/17 Range/Units 06:44 06:44 11:31 D-Dimer (<0.60) mg/L FEU BUN (7-17) mg/dL Glucose (74-99) mg/dL POC Glucose (mg/dL) 177 H (75-99) mg/dL Hemoglobin A1c 7.4 H (4.2-6.1) % Total Creatine Kinase 186 H (30-135) U/L CK-MB (CK-2) 3.2 H* (0.0-2.4) ng/mL Urine Protein (Negative) Urine Glucose (UA) (Negative) Ur Leukocyte Esterase (Negative) Urine RBC (0-5) /hpf Urine WBC (0-5) /hpf Urine Bacteria (None) /hpf Urine Mucus (None) /hpf 07/24/17 Range/Units 11:51 D-Dimer (<0.60) mg/L FEU BUN (7-17) mg/dL Glucose (74-99) mg/dL POC Glucose (mg/dL) (75-99) mg/dL Hemoglobin A1c (4.2-6.1) % Total Creatine Kinase 174 H (30-135) U/L CK-MB (CK-2) 2.7 H* (0.0-2.4) ng/mL Urine Protein (Negative) Urine Glucose (UA) (Negative) Ur Leukocyte Esterase (Negative) Urine RBC (0-5) /hpf Urine WBC (0-5) /hpf Urine Bacteria (None) /hpf Urine Mucus (None) /hpf Thrombosis Risk Factor Assmnt - Choose All That Apply Any of the Below Risk Factors Present?: No Other Risk Factors: Yes Each Risk Factor Represents 2 Points: Age 61-74 years Other congenital or acquired thrombophilia - If yes, enter type in comment: No Thrombosis Risk Factor Assessment Total Risk Factor Score: 2 Thrombosis Risk Factor Assessment Level: Low Risk
== END 2017-07-24 18:37 | disposition home or self-care (01) | DRG 312 ==
LOC: EC 20:17 → 6SEL 07-24 00:21
PROVIDERS: ADMIT Hospitalist; ATTEND Hospitalist
DX: R55 Syncope and collapse (principal); E10.9 Type 1 diabetes mellitus without complications; E78.5 Hyperlipidemia, unspecified; F17.200 Nicotine dependence, unspecified, uncomplicated; Z79.82 Long term (current) use of aspirin; Z79.899 Other long term (current) drug therapy; Z88.0 Allergy status to penicillin; Z88.8 Allergy status to other drugs, medicaments and biological substances; Z96.41 Presence of insulin pump (external) (internal)
CPT/HCPCS: 36415; 70450; 71020; 71275; 80053; 81001; 82550; 82553; 83036; 84484; 85025; 85379; 85610; 85730; 93005; 93306; 96360; 96361; 99285

== ENCOUNTER → 2017-11-06 | Outpatient (CLI) | payer MEDICARE ==
[2017-11-06 10:16] LABS: Basophils # (A) 0.1 k/uL (0-0.2); Basophils % (A) 1 %; CH 29.5; CHCM 32.1; Eosinophils # (A) 0.3 k/uL (0-0.7); Eosinophils % (A) 4 %; HCT 42.8 % (34.0-46.0); HDW 2.29; HGB 13.6 gm/dL (11.4-16.0); Luc # (Auto) 0.16; Luc % (Auto) 2; Lymphocytes # (A) 1.7 k/uL (1.0-4.8); Lymphocytes % (A) 25 %; MCH 29.3 pg (25.0-35.0); MCHC 31.7 g/dL (31.0-37.0); MCV 92.3 fL (80.0-100.0); Mean Platelet Volume 7.2; Monocytes # (A) 0.5 k/uL (0-1.0); Monocytes % (A) 7 %; Neutrophils # (A) 4.1 k/uL (1.3-7.7); Neutrophils % (A) 61 %; RBC 4.64 m/uL (3.80-5.40); RDW 13.2 % (11.5-15.5); WBC 6.8 k/uL (3.8-10.6); WBC (Perox) 6.67
[2017-11-07 08:04] LABS: ALT 26 U/L (9-52); AST 20 U/L (14-36); Alkaline Phosphatase 70 U/L (38-126); Anion Gap 5 mmol/L; Blood Urea Nitrogen 13 mg/dL (7-17); Calcium 9.5 mg/dL (8.4-10.2); Carbon Dioxide 29 mmol/L (22-30); Chloride 107 mmol/L (98-107); Cholesterol 195 mg/dL (<200); Glucose 116 mg/dL (74-99); HDL Cholesterol 45 mg/dL (40-60); Non-African American GFR(MDRD) 55 (>60 ml/min/1.73 sqM); Potassium 4.7 mmol/L (3.5-5.1); Sodium 141 mmol/L (137-145); Total Bilirubin 0.6 mg/dL (0.2-1.3); Total Protein 6.9 g/dL (6.3-8.2)
[2017-11-07 11:35] LABS: Urine Creatinine 152.8 mg/dL
== END | disposition home or self-care (01) ==
LOC: LABWHC1 09:36
PROVIDERS: ATTEND Internal Medicine Endocrinology, Diabetes & Metabolism
DX: Z00.01 Encounter for general adult medical examination with abnormal findings (principal); E10.65 Type 1 diabetes mellitus with hyperglycemia; E10.42 Type 1 diabetes mellitus with diabetic polyneuropathy; E78.2 Mixed hyperlipidemia; E55.9 Vitamin D deficiency, unspecified; F17.210 Nicotine dependence, cigarettes, uncomplicated; Z79.4 Long term (current) use of insulin
CPT/HCPCS: 36415; 80053; 80061; 82043; 82306; 82570; 83036; 84443; 85025

== ENCOUNTER → 2018-04-13 | Outpatient (CLI) | payer MEDICARE ==
[2018-04-13 11:53] LABS: Calcium 9.1 mg/dL (8.4-10.2); Potassium 4.5 mmol/L (3.5-5.1); Total Bilirubin 0.6 mg/dL (0.2-1.3); Total Protein 6.7 g/dL (6.3-8.2)
[2018-04-13 20:08] LABS: Hemoglobin A1C 7.3 % (4.0-6.0)
== END | disposition home or self-care (01) ==
LOC: LABWHC1 10:18
PROVIDERS: ATTEND Internal Medicine Endocrinology, Diabetes & Metabolism
DX: E10.65 Type 1 diabetes mellitus with hyperglycemia (principal)
CPT/HCPCS: 36415; 80053; 80061; 82043; 82570; 83036; 84443

== ENCOUNTER → 2018-10-12 | Outpatient (CLI) | payer MEDICARE ==
[2018-10-12 18:59] LABS: Albumin 4.1 g/dL (3.80-4.90); Albumin/Globulin Ratio 1.86 (1.20-2.10); Anion Gap 4.3 mmol/L (4.00-12.00); Carbon Dioxide 27.7 mmol/L (21.6-31.8); Globulin 2.2 g/dL (2.1-3.7); LDL Cholesterol,Calculated 115.6 mg/dL (0.0-131.0); Potassium 4.5 mmol/L (3.5-5.5); Total Bilirubin 0.4 mg/dL (0.3-1.2); Total Protein 6.3 g/dL (6.2-8.2); VLDL Calculation 31.4 mg/dL (5.00-40.00)
[2018-10-12 23:39] LABS: Hemoglobin A1C 7.5 % (4.0-6.0)
== END | disposition home or self-care (01) ==
LOC: LABWHC1 11:49
PROVIDERS: ATTEND Internal Medicine Endocrinology, Diabetes & Metabolism
DX: E10.65 Type 1 diabetes mellitus with hyperglycemia (principal)
CPT/HCPCS: 36415; 80053; 80061; 82043; 82570; 83036; 84443

== ENCOUNTER → 2019-02-01 | Outpatient (CLI) | payer MEDICARE ==
[2019-02-01 17:52] LABS: Albumin 4.2 g/dL (3.80-4.90); Albumin/Globulin Ratio 1.91 (1.60-3.17); Anion Gap 6.1 mmol/L (4.00-12.00); Calcium 9.1 mg/dL (8.7-10.3); Carbon Dioxide 29.9 mmol/L (21.6-31.8); Globulin 2.2 g/dL (1.6-3.3); LDL Cholesterol,Calculated 126.6 mg/dL (0.0-131.0); Potassium 4.7 mmol/L (3.5-5.5); Total Bilirubin 0.6 mg/dL (0.2-1.2); Total Protein 6.4 g/dL (6.2-8.2); VLDL Calculation 36.4 mg/dL (5.00-40.00)
[2019-02-01 19:44] LABS: Hemoglobin A1C 7.4 % (4.0-6.0)
== END | disposition home or self-care (01) ==
LOC: LABWHC1 09:29
PROVIDERS: ATTEND Internal Medicine Endocrinology, Diabetes & Metabolism
DX: E10.65 Type 1 diabetes mellitus with hyperglycemia (principal)
CPT/HCPCS: 36415; 80053; 80061; 82043; 82570; 83036; 84443

== ENCOUNTER → 2019-05-25 | Outpatient (CLI) | payer MEDICARE ==
[2019-05-25 17:35] LABS: African American GFR (CKD) 52.7 (60.0-200.0); Albumin 3.9 g/dL (3.80-4.90); Albumin/Globulin Ratio 1.7 (1.60-3.17); Anion Gap 5.9 mmol/L (4.00-12.00); BUN/Creat Ratio 10.83 Ratio (12.00-20.00); Calcium 9.3 mg/dL (8.7-10.3); Carbon Dioxide 29.1 mmol/L (21.6-31.8); Globulin 2.3 g/dL (1.6-3.3); LDL Cholesterol,Calculated 111.6 mg/dL (0.0-131.0); Potassium 4.3 mmol/L (3.5-5.5); Total Bilirubin 0.4 mg/dL (0.3-1.2); Total Protein 6.2 g/dL (6.2-8.2); VLDL Calculation 31.4 mg/dL (5.00-40.00)
[2019-05-25 18:47] LABS: Hemoglobin A1C 7.4 % (4.0-6.0)
== END | disposition home or self-care (01) ==
LOC: LABWHC1 08:48
PROVIDERS: ATTEND Internal Medicine Endocrinology, Diabetes & Metabolism
DX: E10.65 Type 1 diabetes mellitus with hyperglycemia (principal)
CPT/HCPCS: 36415; 80053; 80061; 82043; 82570; 83036; 84443

== ENCOUNTER → 2019-12-15 | Outpatient (CLI) | payer MEDICARE ==
--- NOTE | 2019-12-16 10:17 | BD ---
EXAMINATION TYPE: Axial Bone Density DATE OF EXAM: 12/15/2019 COMPARISON: NONE CLINICAL HISTORY: 74 YR OLD FEMALE.....ICD-10 CODE: Z78.0 ASYMPTOMATIC MENOPAUSAL STATE Height: 63 Weight: 146 FRAX RISK QUESTIONS: Secondary Osteoporosis: YES 1. Type 1 Diabetes: YES 3. Menopause before 45: YES AT 44 YRS OLD Current Tobacco Use: YES RISK FACTORS HISTORY OF: History of Wrist Fracture: LT WRIST AT AGE 15 Postmenopausal woman: YES EARLY 40s, TOTAL HYST Lost more than 2 inches in height since high school: YES Hyperparathyroidism: NO Adrenal Insufficiency: NO MEDICATIONS: Additional Medications: INSULIN PUMP, CHOLESTEROL MED, VIT D Additional History: DIABETIC, CHOLESTEROL EXAM MEASUREMENTS: Bone mineral densitometry was performed using the [email or web address] System. Bone mineral density as measured about the Lumbar spine is: ----- L1-L4(G/cm2): 1.115 T Score Values are as follows: ----- L1: -1.6 ----- L2: -0.5 ----- L3: 0.3 ----- L4: -0.9 ----- L1-L4: -0.5 Bone mineral density FIRST DEXA STUDY AT [facility] Bone mineral density about the R hip (g/cm2): 0.877 Bone mineral density about the L hip (g/cm2): 0.838 T Score values are as follows: -----R Neck: -1.4 -----L Neck: -2.0 -----R Total: -1.0 -----L Total: -1.3 Bone mineral density FIRST SCAN AT [facility] FRAX%s: THERE IS A 13.8% CHANCE FOR A MAJOR OSTEOPOROTIC FX AND A 4.8% FOR HIP....PROBABILITY FOR F X IN 10 YRS TIME IMPRESSION: Osteopenia (T Score between -2.5 and 1). There is slightly increased risk of fracture and patient may be considered for treatment. Re-Screen 2-5 years. NOTE: T-SCORE=SD OF THE YOUNG ADULT MEAN.
== END | disposition home or self-care (01) ==
LOC: RADBDWWP 16:08
PROVIDERS: ATTEND Family Medicine
DX: M85.80 Other specified disorders of bone density and structure, unspecified site (principal)
CPT/HCPCS: 77080

== ENCOUNTER → 2020-03-30 | Outpatient (CLI) | payer MEDICARE ==
[2020-03-30 15:37] LABS: African American GFR (CKD) 65.2 (60.0-200.0); Albumin 4.2 g/dL (3.80-4.90); Albumin/Globulin Ratio 1.75 (1.60-3.17); Anion Gap 5.5 mmol/L (4.00-12.00); Calcium 9.3 mg/dL (8.7-10.3); Carbon Dioxide 27.5 mmol/L (21.6-31.8); Chol/HDL Ratio 4.23; Globulin 2.4 g/dL (1.6-3.3); LDL Cholesterol,Calculated 136.8 mg/dL (0.0-131.0); Non-African American GFR(CKD) 56.2 (60.0-200.0); Potassium 4.4 mmol/L (3.5-5.5); Total Bilirubin 0.6 mg/dL (0.2-1.2); Total Protein 6.6 g/dL (6.2-8.2); VLDL Calculation 31.2 mg/dL (5.00-40.00)
[2020-03-30 16:26] LABS: Hemoglobin A1C 7.8 % (4.0-6.0)
[2020-03-30 16:38] LABS: Urine Creatinine 171.6 mg/dL
== END | disposition home or self-care (01) ==
LOC: LABWHC1 10:27
PROVIDERS: ATTEND Internal Medicine Endocrinology, Diabetes & Metabolism
DX: E11.65 Type 2 diabetes mellitus with hyperglycemia (principal)
CPT/HCPCS: 36415; 80053; 80061; 82043; 82570; 83036; 84443

== ENCOUNTER → 2020-07-18 | Outpatient (CLI) | payer MEDICARE ==
[2020-07-18 17:32] LABS: African American GFR (CKD) 52.3 (60.0-200.0); Albumin 3.9 g/dL (3.80-4.90); Albumin/Globulin Ratio 1.63 (1.60-3.17); Anion Gap 8.8 mmol/L (4.00-12.00); BUN/Creat Ratio 13.33 Ratio (12.00-20.00); Calcium 8.9 mg/dL (8.7-10.3); Carbon Dioxide 24.2 mmol/L (21.6-31.8); Chol/HDL Ratio 4.08; Globulin 2.4 g/dL (1.6-3.3); Non-African American GFR(CKD) 45.1 (60.0-200.0); Potassium 4.6 mmol/L (3.5-5.5); Total Bilirubin 0.5 mg/dL (0.2-1.2); Total Protein 6.3 g/dL (6.2-8.2)
[2020-07-18 18:46] LABS: Hemoglobin A1C 8.3 % (4.0-6.0)
[2020-07-18 21:33] LABS: Urine Creatinine 321.9 mg/dL
== END | disposition home or self-care (01) ==
LOC: LABWHC1 09:49
PROVIDERS: ATTEND Internal Medicine Endocrinology, Diabetes & Metabolism
DX: E10.65 Type 1 diabetes mellitus with hyperglycemia (principal)
CPT/HCPCS: 36415; 80053; 80061; 82043; 82570; 83036; 84443